=== PATIENT | female | born 1995 | race Caucasian/White ===

== ENCOUNTER → 2018-01-30 | Outpatient (CLI) | payer BC ==
[~2018-01-30] MED LIST: AZIT500T47 PO; CITA-145 PO; EMBREL IM; IMPLANON; PRE20 PO
[2018-01-30 16:15] LABS: PLATELET COUNT, AUTOMATED 317 K/uL (150-450)
== END ==
LOC: LAB 16:01
PROVIDERS: ATTEND Student in an Organized Health Care Education/Training Program
DX: Z34.91 Encounter for supervision of normal pregnancy, unspecified, first trimester (principal); R82.79 Other abnormal findings on microbiological examination of urine
CPT/HCPCS: 36415; 81001; 85025; 86592; 86762; 86787; 86850; 86900; 86901; 87088; 87340

== ENCOUNTER → 2018-05-15 | Outpatient (CLI) | payer BC ==
[~2018-05-15] MED LIST changes: +METR-1 PO; +SERT-1 PO
--- NOTE | 2018-05-15 13:33 | RADIOLOGY IMAGING REPORT ---
FACILITY: [facility] PATIENT NAME: Clair Jiménez : 1995 MR: [id number] V: [id number] EXAM DATE: ORDERING PHYSICIAN: LEANN COVARRUBIAS TECHNOLOGIST: Location: [facility] Patient: Clair Jiménez : 1995 Visit/Account:[id number] Date of Sevice: 05/15/2018 [facility] OB ANATOMICAL SURVEY HISTORY: Anatomic survey COMPARISON: None. TECHNIQUE: Transabdominal imaging was performed for assessment of the fetus and maternal pelvic s tructures. Transvaginal imaging was not performed. FINDINGS: Intrauterine gestations: One. presentation: Variable. heart rate: 134 bpm. Amniotic fluid volume: Normal; FAUSTO 17.41 cm; MVP 5.82 cm. Placenta: Anterior with no evidence of a placenta previa. Uterus: Gravid, otherwise grossly unremarkable where visualized. Maternal adnexa/ovaries: Grossly unremarkable, ovaries not visualized. Cervix: Grossly long and closed. Gestational Parameters: BPD: 4.82 cm, 83rd percentile HC: 18.14 cm, 79th percentile AC: 15.59 cm, 78th percentile FL: 3.35 cm, 71st percentile Average ultrasound age (AUA): 20 weeks/ five days Estimated age based on LMP: 19 weeks/ five days Estimated weight (EFW): 366 grams +/- 54 grams, 91st percentile Anatomic Survey: Intracranial structures, 4-chamber heart, stomach, kidneys, urinary bladder, spine, 3-vessel cord and cord insertion are unremarkable. Two upper and two lower extremities visualized. IMPRESSION: Single viable fetus in variable presentation with an estimated gestational age by measurements of 20 weeks and five days. The estimated weight is 366 g, 91st percentile Report Dictated By: Grace Leal MD at 05/15/2018 1:25 PM Report E-Signed By: Grace Leal MD at 05/15/2018 1:29 PM WSN:DERIAN
== END ==
LOC: RAD 11:01
PROVIDERS: ATTEND Student in an Organized Health Care Education/Training Program
DX: Z34.92 Encounter for supervision of normal pregnancy, unspecified, second trimester (principal); Z3A.20 20 weeks gestation of pregnancy

== ENCOUNTER → 2018-09-05 | Outpatient (CLI) | payer BC ==
[~2018-09-05] MED LIST changes: +DIPH0.5D12 IM
== END ==
LOC: LAB 09:31
PROVIDERS: ATTEND Student in an Organized Health Care Education/Training Program
DX: Z36.85 Encounter for antenatal screening for Streptococcus B (principal)
CPT/HCPCS: 87081

== ENCOUNTER 2018-09-22 15:54 | Observation (INO) | payer BC ==
[~2018-09-22] VITALS: Ht 157.5 cm; Wt 75.7 kg
[2018-09-22 17:00] VITALS: BP 128/78; Ht 157.5 cm; Wt 75.7 kg
== END 2018-09-22 19:18 | disposition home or self-care (01) ==
LOC: OB 15:54 → INTOOBSV 15:54
PROVIDERS: ADMIT Student in an Organized Health Care Education/Training Program; ATTEND Student in an Organized Health Care Education/Training Program
DX: O47.1 False labor at or after 37 completed weeks of gestation (principal); Z3A.38 38 weeks gestation of pregnancy
CPT/HCPCS: G0378; G0379

== ENCOUNTER 2018-09-26 16:55 | Inpatient (IN) | payer BC ==
[~2018-09-26] VITALS: Ht 157.5 cm; Wt 74.8 kg
[~2018-09-26 16:55] MED LIST changes: +EPIDURAL KEYS XX PRN; +FENTANYL/ROPIVACAINE 100 ML BAG EPI PRN; +LR(*) 1000 ML BAG 1,000 ML IV PRN; +LR(*) 1000 ML BAG 1,000 ML ONE; +ONDANSETRON 4 MG/2 ML VIAL IVP PRN; +fentaNYL CITR 100 MCG/2 ML AMP IT PRN
[2018-09-26 17:15] VITALS: BP 146/83; Ht 157.5 cm; Wt 74.8 kg
[2018-09-26] MEDS ORDERED: FAMOTIDINE(*) 20MG/50ML PREMIX 50 ML IVPB PRN (17:33)
[2018-09-26] MEDS ORDERED: OXYTOCIN 30 UNIT/D5LR 500 ML 500 ML IV PRN (17:33)
[2018-09-26] MEDS ORDERED: LIDOCAINE 1% LOCAL 300 MG/30ML INJ PRN (17:35)
[2018-09-26] MEDS ORDERED: FLUSH 10 ML SYR IVP PRN (17:35)
[2018-09-26] MEDS ORDERED: fentaNYL CITR 100 MCG/2 ML AMP IVP PRN (17:35)
[2018-09-26] MEDS ORDERED: LIDOCAINE/SOD BICARB 8.4% SYR SC PRN (17:35)
[2018-09-26] MEDS ORDERED: ONDANSETRON 4 MG/2 ML VIAL IVP PRN (17:35)
[2018-09-26] MEDS ORDERED: ACETAMINOPHEN 325 MG TAB PO PRN (17:35)
[2018-09-26 17:56] LABS: PLATELET COUNT, AUTOMATED 216 K/uL (150-450)
--- NOTE | 2018-09-26 18:14 | History & Physical ---
History of Present Illness Age of Patient: 22 : 1 Para or TPAL: 0 EDC per LMP: Oct 04, 2018 Estimated Gestational Age: 38.6 Chief Complaint Contractions History of Present Illness Pt is a 22 y/o @ 38-6/7 wga by lmp who presents to L&D with a chief complaint of painful contractions. Pt reports contractions starting at 0400 this morning. Was checked in the office early this afternoon and was 3 cm. Reports no loss of amniotic fluid. Good movement. Minimal spotting. History Patient's Blood Type: O Positive Rubella Status: Immune Group B Strep Screen: Negative Obstetrical History: Past Medical History: Non contributory Allergies: Coded Allergies: No Known Drug Allergies (Verified , 07/26/11) Social History: Denies X 3 Family History: FH: asthma BROTHER OR SISTER FH: cancer FH: diabetes mellitus Med Rec Home Meds Active Scripts Sertraline Hcl (ZOLOFT) 50 Mg Tablet, 1 TAB PO QDAY for 30 Days, #30 TAB 9 Refills Prov:LEANN COVARRUBIAS DO 03/21/18 Review of Systems All Systems Reviewed/Normal: Yes, Except as Noted Constitutional: No Fever, No Weight Loss, No Weight Gain, No Chills, No Night Sweats, No Other Eyes: No Vision Change, No Loss of Vision, No Photophobia, No Other ENT: No Hearing Loss, No Sinus Congestion, No Sore Throat, No Ear Ache, No Tinnitus, No Other Cardiovascular: No Chest Pain, No Palpitations, No Orthostatic Hypotension, No Other Respiratory: No Shortness of Breath, No Cough, No Wheezing, No Other Gastrointestinal: No Nausea, No Vomiting, No Diarrhea, No Dysphagia, No Constipation, No Early Satiety, No Hematemesis, No Hematochezia, No Melena, No Abdominal Pain, No Other Genitourinary: No Dysuria, No Hematuria, No Urinary Incontinence, No Other Musculoskeletal: No Pain, No Sprain, No Strain, No Impaired Mobility, No Other Exam General Exam General Apperance: Alert/Awake/No Acute Distress Neuro: No Gross deficits Eyes: Normal Extraocular Movement & Vison ENT: Normal Cardiovascular: Regular Rate and Rhythm Respiratory: No Respiratory Distress Abdomen: Soft, Non-Tender, Non-Distended, Gravid - Non-Tender Integumentary: Skin Intact without Lesions or Rash Psychological: Alert & Oriented X3, Appropriate Mood & Affect Vaginal Discharge/Fluid?: Bloody Show Cervical Dialation: 5 Cervical Effacement (%): 100 Cervical Consistency: Soft Cervical Position: Anterior Station: -2 Presentation: Vertex Uterine Contractions(Q min): 3 Uterine Contraction Strength: Moderate UC Resting Tone: Soft Fetus Feeling Movement?: Yes Estimated Weight(grams): 3200 Heart Tones: 130 Heart Tone Variabilty: Moderate FHT Accelerations: 15X15 FHT Decelerations: None Medical Decision Making Data Points Result Diagram: 09/26/18 020 Pre-Admit Course Medical Record Review: Yes VTE Prophylasis: Adult Deep Vein Thrombosis/Pulmonary: No 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 Amniotomy once IV. Epidural when desires. Expect . LEANN COVARRUBIAS DO Sep 26, 2018 18:14
[2018-09-26] MEDS ORDERED: fentaNYL CITR 100 MCG/2 ML AMP IT PRN (18:25)
[2018-09-26] MEDS ORDERED: EPIDURAL KEYS XX PRN ×2 (18:25→19:48)
[2018-09-26] MEDS ORDERED: BUPIVACAINE 0.5% INJ 30ML VIAL EPI PRN (18:25)
[2018-09-26] MEDS ORDERED: LIDO/EPI 2% MPF 1:200,000 20ML EPI PRN (18:25)
[2018-09-26] MEDS ORDERED: LIDOCAINE/PF 2% 200MG/10ML AMP 200 MG/10 ML AMPUL EPI PRN (18:25)
[2018-09-26] MEDS ORDERED: BUPIVACAINE 0.25% MPF INJ EPI PRN (18:25)
[2018-09-26] MEDS ORDERED: FENTANYL/ROPIVACAINE 100 ML BAG EPI PRN (18:25)
--- NOTE | 2018-09-26 18:34 | Labor Progress Note ---
Labor Subjective Progress Notes Subjective Breathing through contractions. 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 If no change in 2-4 hours start oxytocin. LEANN COVARRUBIAS DO Sep 26, 2018 18:34
[2018-09-26] MEDS: LR(*) 1000 ML BAG 1,000 ML IV SCH ×2 (18:43→20:00)
[2018-09-26] MEDS ORDERED: ePHEDrine 25 MG/5 ML DISP.SYR IVP ONE (18:54)
--- NOTE | 2018-09-26 20:15 | Anesthesia OB Pre-Anes Eval ---
History of Present Illness Anesthesia Start Date: Sep 26, 2018 Anesthesia Start Time: 19:01 OB Anesthesia Diagnosis: spontaneous labor EDC: Sep 06, 2018 : 1 Para: 0 Pain Ratin Result Diagram: 09/26/18 1742 Height (Inches): 62.00 Weight (Pounds): 165 Past Medical History Medical History: no pertinent history Surgical History: no surgical history Previous Anesthesia: other (none) Hx Anesthesia Reactions: No Hx Family Anesthesia Reaction: No Home Meds Active Scripts Sertraline Hcl (ZOLOFT) 50 Mg Tablet, 1 TAB PO QDAY for 30 Days, #30 TAB 9 Refills Prov:LEANN COVARRUBIAS DO 03/21/18 Allergies: Coded Allergies: No Known Drug Allergies (Verified , 07/26/11) Anesthesia OB ROS Neurological: seizures (at 11 years of age); No migraines/headaches, No ne uropathy, No other ENT: Denies Tooth caps, Denies Loose teeth, Denies Chipped teeth, Denies Dentures, Denies Bridges, Denies Retainers, Denies Veneers, Denies Implants, Denies Tongue ring, Denies Other Pulmonary: No asthma, No smoker (pks/day/yrs), No other Airway Class: l Cardiovascular ROS: No edema, No arrhythmia, No other GI ROS: clear liquids, ice chips ROS: No Herpes, No STD(s), No Liver Disease, No Renal Disease, No Other Endocrine ROS: No diabetes, No gestational diabetes, No thyroid disorder, No other Musculoskeletal ROS: No low back pain, No low back injury, No scoliosis, No other ASA Classification: 2 Assessment and Plan Anesthesia Plan: CSE Assessment: Catheter disconnected from tubing at 0245 so epidural was removed and discontinued. Assessment no contraindications for cse Anesthesia Stop Day: Sep 27, 2018 Anesthesia Stop Time: 03:30 Epidural Catheter Removal: Removed Catheter Intact, Yes, Removed by: (Markus Kemp) Removal Date: Sep 27, 2018 Removal Time: 02:45 MARKUS KEMP CRNA Sep 26, 2018 20:15
--- NOTE | 2018-09-26 20:18 | Procedure Note ---
Anesthetic Placement Note Anesthesia Plan: CSE Permit for Anesthesia Signed: Yes Anesthesia Technique: Patient Sitting Anesthesia Prep: Chlorhexidine Interspace: L 3-4 Local Anesthetic: 1% Lidocaine, 25 Gauge Needle Amount Local - cc's: 2 Anesthesia Needle: 17g Touhy/Schliff Anesthesia Attempts: 1 Loss of Resistance: Normal Saline Depth of DINO (cm): 4.5 Epidural Needle Placement: No CSF, No Blood, No Parasthesia Intrathecal Needle: 27 Gauge Pencan Cerebral Spinal Fluid: Yes, Clear Catheter Insertion (cm): 11 Catheter Type: Hitchcock - Spring Wound Epidural Dressing: Tegaderm, Tape Anesthesia Tray: Lot Number ([id number]), Expiration Date (03/31/2020) Anesthesia Medications: Intrathecal Dose: mcg Fentanyl (50) Epidural Test Dose: 1.5 Lido/Epi (1:200,000), Dose - mL (4), Time (1941), Negative Epidural Loading Dose: 0.2% Ropivicaine, With Fentanyl 2mcg/ml, Dose - ml (3), Time (1955) Epidural Infusion: 0.2% Ropivicaine, With Fentanyl 2mcg/ml, Start Time: (1955) Epidural Pump Setting: Bolus Dose - mL (4), Lockout - Minutes (20), Maintenance Rate - mL/hr (8), Maximum per Hour - mL (8) Complications: None Comment: Pump was increased to 10ml/hr around MARKUS STORM CRNA Sep 26, 2018 20:18
[2018-09-27] MEDS ORDERED: CARBOPROST TROMETHAM 250MCG/ML IM ONLY ONE (02:23)
[2018-09-27] MEDS ORDERED: METHYLERGONOVINE MAL 0.2MG/ML ONE (02:23)
[2018-09-27] MEDS ORDERED: LANOLIN OINT 7 GM TUBE TP PRN (04:10)
[2018-09-27] MEDS ORDERED: ACETAMINOPHEN 325 MG TAB PO PRN (04:10)
[2018-09-27] MEDS ORDERED: MAGNESIUM HYDROXIDE* 30ML UDCP PO PRN (04:10)
[2018-09-27] MEDS ORDERED: HYDROCORTISONE 2.5% CR 30GM TB PR PRN (04:10)
[2018-09-27] MEDS ORDERED: INFLUENZA VIRUS VAC 0.5ML SYR IM ONLY ONE (04:10)
[2018-09-27] MEDS ORDERED: MEASLES,MUMP,RUBELLA VAC 0.5ML SC ONE (04:10)
[2018-09-27] MEDS ORDERED: GLYCERIN/WITCH HAZEL LEAF 1 PK TOP PRN (04:10)
[2018-09-27] MEDS ORDERED: DIPHTH/TETANUS/ACEL. PERTUSSIS IM ONE (04:10)
[2018-09-27] MEDS ORDERED: BENZOCAINE 20% 60 ML BTL TP PRN (04:10)
--- NOTE | 2018-09-27 04:17 | OB Delivery Note ---
Delivery Note Vaginal Delivery Type: Vacuum Delivery Date: Sep 27, 2018 Delivery Time: 03:23 Estimated Gestational Age(wks): 39.0 Indication (if vag op): Poor maternal effort, maternal exhaustion. Length of Labor Stage I (hrs): 15 Length of Labor Stage II (hrs): 3 Labor Stage III (minutes): 7 Delivery Anesthesia: Epidural Sex: Male Infant Weight (gms): 3515 (7#13) [place] Apgars: 1 Minute (8), 5 Minute (9) Repair Needed: 2nd Degree Estimated Blood Loss: 500 Consumer Safety Officer in Attendence: LEANN Todd DO Sep 27, 2018 04:17
--- NOTE | 2018-09-27 04:56 | DELIVERY NOTE ---
DELIVERY DATE: September 27, 2018 SURGEON: Néstor Orozco DO ANESTHESIA: Epidural. PREOPERATIVE DIAGNOSES 1. A 22-year-old 1, para 0, at 39-0/7 weeks' gestation. 2. Labor. POSTOPERATIVE DIAGNOSES 1. A 22-year-old 1, para 0, at 39-0/7 weeks' gestation. 2. Labor. 3. Delivered. PROCEDURE Vacuum-assisted vaginal delivery with repair of second-degree midline laceration and left labial laceration. FINDINGS Live-born male at 0323 of 09/27/2018 with Apgars of 8 and 9, weighing 3515 g, 7 pounds 13 ounces, three-vessel cord, intact placenta, over a second- degree midline laceration and a left labial laceration. ESTIMATED BLOOD LOSS 500 mL. PATHOLOGY None. COMPLICATIONS None known. CONDITION Stable x2. Mother and remained in the LDRP. COUNTS Correct for all needles, laps, sponges and instruments. LABOR SUMMARY Patient is a 22-year-old 1, para 0, at 39-0/7 weeks' gestation, who presented to Labor and Delivery with a complaint of painful contractions. She was 5 cm. Shortly after admission, she underwent amniotomy with clear amniotic fluid. She made quick, spontaneous progress to complete. After a short time of pushing, the labor and delivery nurse decided it was time to stop pushing secondary to poor maternal effort as well as a heavy epidural. The patient was given approximately an hour before returning to pushing. Patient began to push again and pushed for approximately two hours. It was noted that there was minimal vertex noted at labia when pushing. After watching Mom push for approximately 30 minutes, I counseled her for a vacuum-assisted vaginal delivery secondary to her tiring out and poor effort. Both she and her agreed to proceed with a vacuum-assisted vaginal delivery. At this point, the bladder was drained with a red rubber catheter. The station was noted to be +2/+3 with pushing. The vacuum was placed approximately 2 cm anterior to the posterior fontanelle. It was cleared of all maternal tissue. With the contraction, the vacuum was applied and suction was applied to the green zone of the Kiwi hard cup vacuum. Gentle outward traction was applied with that. There was one popoff noted in the progression of the entire vacuum- assisted delivery. With each subsequent pull, there was significant change in station. It did require a total of four contractions for delivery of the 's chin. The vacuum suction was removed in between each contraction, but the vacuum remained in place on the head with suction at 0. With the 's chin controlled, the suction was removed. The infant restituted from an occiput anterior position to a left occiput anterior position. With gentle downward motion, the anterior shoulders delivered without any difficulty. With gentle upward motion, the posterior shoulders delivered without any difficulty, with the remainder of the 's body delivering spontaneously. There was terminal meconium noted upon quick inspection, with nose and mouth being bulb-suctioned. A vigorous male infant was then placed on maternal abdomen, was stimulated by nursing staff and continued to remain vigorous. After approximately three minutes, the cord was clamped x2 and cut by the infant's father. Because of concerns for infant lungs being crackly, the infant was taken to the warmer to have a little bit of monitoring while repair was undertaken. Next, cord blood gas was obtained. The placenta delivered spontaneously with gentle cord traction. Oxytocin was infused to help with uterine tone. Uterus was massaged and deemed firm. Next, upon inspection of the perineum and vagina, cervix and labia, it was noted that there was a second-degree midline laceration as well as a left labial laceration. These were both repaired in a running manner with 3-0 Vicryl for the second-degree and a 4-0 Vicryl for the left labial. With lacerations inspected, it was noted that both were hemostatic. The bladder was once again drained with a red rubber catheter. The patient was cleaned. The labor bed was reassembled, and the mother and were allowed to continue to dasilva. [facility]atshe[facility]
[2018-09-27] MEDS: IBUPROFEN 800 MG TAB PO SCH ×2 (05:12→12:50)
[2018-09-27] MEDS ORDERED: LIDOCAINE 1% LOCAL 300 MG/30ML 0 ML ONE (05:35)
[2018-09-27] MEDS: APAP/HYDROCODONE 325/5 TAB PO PRN ×2 (06:18→21:21)
[2018-09-27] MEDS: LR(*) 1000 ML BAG 1,000 ML IV SCH ×4 (07:05→23:33)
[2018-09-27 07:21] VITALS: BP 114/75
[2018-09-27] MEDS ORDERED: MISOPROSTOL 200 MCG TAB ONE (08:27)
[2018-09-27] MEDS: DOCUSATE CALCIUM 240 MG CAP PO SCH ×2 (09:04→21:07)
--- NOTE | 2018-09-27 09:14 | OB/GYN Progress Note ---
OB Subjective Progress Notes Subjective Doing better since delivery. Patient reports bleeding has slowed down drastically. Denies any nausea or vomiting. Denies any dizziness or chest pain. Would like to have the catheter out. GI: NEG Nausea, NEG Vomiting, NEG Flatus, NEG Bowel Movement : Vaginal Bleeding, Moderate Pain: Mild, Tolerating PO Pain Meds Neurological: No Headache, No Other Eyes: No Visual Disturbances OB Objective Physical Exam Vital Signs Date Time Temp Pulse Resp B/P (MAP) Pulse Ox O2 Delivery O2 Flow Rate FiO2 09/27/18 07:21 99.0 109 18 114/75 (88) 94 09/26/18 17:15 Room Air Intake and Output 09/27/18 07:00 Output Total 750 ml Balance -750 ml Output Urine Total 750 ml General Appearance: Alert/Awake/No Acute Distress Neurological: No Gross deficits Eyes: Normal Extraocular Movement & Vison Respiratory: No Respiratory Distress Integumentary: Skin Intact without Lesions or Rash Psychological: Alert & Oriented X3, Appropriate Mood & Affect Result Diagram: 09/26/18 5936 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 Patient did have 1000 mL of bleeding that was managed with IM Methergine, Cytotec 400 g by mouth 1 dose, additional bag of oxytocin. Patient did receive 1 L bolus of lactated Ringer's has great urine output. Will discontinue patient's Villanueva c atheter after she eats breakfast and ambulates expect routine normal care thereafter. Will consider H&H tonight. LEANN COVARRUBIAS DO Sep 27, 2018 09:14
[2018-09-27 12:05] VITALS: BP 108/61
[2018-09-27 15:18] VITALS: BP 91/52
[2018-09-27 20:41] VITALS: BP 115/65
[2018-09-27] MEDS ORDERED: IBUPROFEN 800 MG TAB PO SCH (21:00)
[2018-09-27 21:13] VITALS: BP 116/58
[2018-09-28 00:37] VITALS: BP 90/52
[2018-09-28 03:06] VITALS: BP 105/59
[2018-09-28 08:15] VITALS: BP 102/64
[2018-09-28] MEDS ORDERED: FERROUS SULFATE 325 MG TAB PO SCH (08:25)
[2018-09-28] MEDS: DOCUSATE CALCIUM 240 MG CAP PO SCH (08:53)
[2018-09-28] MEDS: APAP/HYDROCODONE 325/5 TAB PO PRN (08:53)
[2018-09-28 12:17] VITALS: BP 118/68
--- NOTE | 2018-09-28 12:34 | OB/GYN Progress Note ---
OB Subjective Progress Notes Subjective Doing good day #1. Reports pain minimal tolerating symptoms with ibuprofen Olin. Bleeding appropriate. . No symptoms of dizziness or shortness of breath with ambulation. GI: NEG Nausea, NEG Vomiting, NEG Flatus, NEG Bowel Movement : Voiding Well, Vaginal Bleeding, Scant Pain: Mild, Tolerating PO Pain Meds Neurological: No Headache, No Other Eyes: No Visual Disturbances OB Objective Physical Exam Vital Signs Date Time Temp Pulse Resp B/P (MAP) Pulse Ox O2 Delivery O2 Flow Rate FiO2 09/28/18 12:17 97.2 108 18 118/68 (85) 96 Room Air Intake and Output 09/28/18 07:00 Intake Total 1740 ml Output Total 1950 ml Balance -210 ml Intake Oral 240 ml IV Total 1500 ml Output Urine Total 1950 ml General Appearance: Alert/Awake/No Acute Distress Neurological: No Gross deficits Eyes: Normal Extraocular Movement & Vison Respiratory: No Respiratory Distress Abdomen: Soft, Non-Tender, Non-Distended, Fundus Firm Integumentary: Skin Intact without Lesions or Rash Psychological: Alert & Oriented X3, Appropriate Mood & Affect Result Diagram: 09/28/18 0632 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 LEANN COVARRUBIAS DO Sep 28, 2018 12:33
[2018-09-28] MEDS ORDERED: LOR5/325 PO (12:35)
[2018-09-28] MEDS ORDERED: IBUP800T37 PO (12:35)
--- NOTE | 2018-09-28 12:38 | OB/GYN Discharge Summary ---
Discharge Summary Reason for Hosp/Final Diag: (1) Active labor at term Status: Resolved Hospital Course & Plan: 22-year-old 1 para 0 presented to labor and delivery at 38-6/7 weeks gestational complaint of labor was deemed to be in labor she progressed to complete did require vacuum assisted vaginal delivery se e delivery note for details procedure. Patient remained in the hospital for one day . Patient did have some uterine atony within the 1st 3 hours of delivery that did require Methergine Cytotec and extraocular. Hemoglobin dropped from 13-9. Patient tolerated EBL without any symptoms. Patient desired to be discharged home on day #1 she was given instructions accordingly and follow-up in 2 weeks. [place] Vital Signs Vital Signs Date Time Temp Pulse Resp B/P (MAP) Pulse Ox O2 Delivery O2 Flow Rate FiO2 09/28/18 12:17 97.2 108 18 118/68 (85) 96 Room Air Weight (Pounds): 165 Result Diagram: 09/28/18 0632 Condition: Improved Discharge: Home Home Meds Active Scripts Hydrocodone Bit/Acetaminophen (HYDROCODON-ACETAMINOPHEN 5-325) 1 Each Tablet, 1- 2 EACH PO Q4H PRN for PAIN, #20 TAB 0 Refills Max of 10/day Prov:LEANN COVARRUBIAS DO 09/28/18 Ibuprofen (IBUPROFEN) 800 Mg Tablet, 800 MG PO Q8H@0600,1400,2200, #20 TAB 0 Refills Prov:LEANN COVARRUBIAS DO 09/28/18 Sertraline Hcl (ZOLOFT) 50 Mg Tablet, 1 TAB PO QDAY for 30 Days, #30 TAB 9 Refills Prov:LEANN COVARRUBIAS DO 03/21/18 Follow up with: [facility] [phone], Dr. Covarrubias [phone] Follow up in: 6 wks PP or PO, 2 wks PO Discharge Diet: As Tolerates, Resume Prior Admit Diet, Increase Fluid Intake Discharge Activity: As Tolerates, Pelvic Rest LEANN COVARRUBIAS DO Sep 28, 2018 12:38
[2018-09-28] MEDS ORDERED: IBUPROFEN 800 MG TAB PO SCH (14:00)
== END 2018-09-28 13:55 | disposition home or self-care (01) | DRG 806 ==
LOC: OB 16:55
PROVIDERS: ADMIT Obstetrics & Gynecology; ATTEND Obstetrics & Gynecology
PROC: 10D07Z6 Extraction of Products of Conception, Vacuum, Via Natural or Artificial Opening (ICD-10-PCS; principal; 2018-09-27)
PROC: 0KQM0ZZ Repair Perineum Muscle, Open Approach (ICD-10-PCS; 2018-09-27)
PROC: 10907ZC Drainage of Amniotic Fluid, Therapeutic from Products of Conception, Via Natural or Artificial Opening (ICD-10-PCS; 2018-09-27)
DX: O77.0 Labor and delivery complicated by meconium in amniotic fluid (principal); O72.2 Delayed and secondary postpartum hemorrhage; Z37.0 Single live birth; O70.1 Second degree perineal laceration during delivery; O75.81 Maternal exhaustion complicating labor and delivery; Z3A.39 39 weeks gestation of pregnancy
CPT/HCPCS: 36415; 85025; 85027; 86703; 86850; 86900; 86901; J2210; J2405; J2590; J3010; J7120

== ENCOUNTER 2018-09-30 14:38 | Emergency (ER) | payer BC ==
[2018-09-26 17:15] VITALS: Wt 74.8 kg
[~2018-09-30 14:38] MED LIST changes: -EPIDURAL KEYS XX PRN; -FENTANYL/ROPIVACAINE 100 ML BAG EPI PRN; +IBUP800T37 PO; +LOR5/325 PO; -LR(*) 1000 ML BAG 1,000 ML IV PRN; -LR(*) 1000 ML BAG 1,000 ML ONE; -ONDANSETRON 4 MG/2 ML VIAL IVP PRN; -fentaNYL CITR 100 MCG/2 ML AMP IT PRN
--- NOTE | 2018-09-30 14:53 | ER Report ---
History and Physical Time Seen By MD: 14:53 HPI/ROS CHIEF COMPLAINT: Pain to right groin back to the buttock HISTORY OF PRESENT ILLNESS: 22-year-old female patient presents to emergency room with complaint of pain to the right groin that radiates to the buttock. Patient states she has had significantly worsening pain with ambulation. Patient states that she has been taking her pain medication with no improvement. She states she's felt warm and hit the emergency room she is tachycardic with a ventricular rate of 117 bpm. Patient denies any nausea, vomiting or diarrhea. Patient states she is 5 days with her first child. She did have some tearing there was repaired with sutures. She denies having any nausea, vomiting or diarrhea. REVIEW OF SYSTEMS: Respiratory: No cough, no dyspnea. Cardiovascular: No chest pain, no palpitations. Gastrointestinal: No vomiting, no abdominal pain. Musculoskeletal: No back pain. Allergies: Coded Allergies: No Known Drug Allergies (Verified , 07/26/11) Home Meds Active Scripts Oxycodone Hcl/Acetaminophen (PERCOCET 5-325 MG TABLET) 1 Each Tablet, 1 EACH PO Q4-6H PRN for PAIN, #12 TAB Prov:[employer] 09/30/18 Hydrocodone Bit/Acetaminophen (HYDROCODON-ACETAMINOPHEN 5-325) 1 Each Tablet, 1- 2 EACH PO Q4H PRN for PAIN, #20 TAB 0 Refills Max of 10/day Prov:LEANN OROZCO DO 09/28/18 Ibuprofen (IBUPROFEN) 800 Mg Tablet, 800 MG PO Q8H@0600,1400,2200, #20 TAB 0 Refills Prov:LEANN OROZCO DO 09/28/18 Discontinued Scripts Sertraline Hcl (ZOLOFT) 50 Mg Tablet, 1 TAB PO QDAY for 30 Days, #30 TAB 9 Refills Prov:LEANN OROZCO DO 03/21/18 Past Medical/Surgical History Patient has a past medical history of psoriasis, anxiety. Patient denies any surgical history. Reviewed Nurses Notes: Yes Hx Smoking: No Smoking Status: Never Smoker Exposure to Second Hand Smoke?: No Hx Substance Use Disorder: No Hx Alcohol Use: No Constitutional Vital Sign - Last 24 Hours 09/30/18 09/30/18 09/30/18 09/30/18 14:38 14:51 14:53 15:00 Pulse ??? 119 Resp 46 B/P (MAP) 131/84 (100) 122/93 (103) Pulse Ox 92 09/30/18 09/30/18 09/30/18 09/30/18 15:00 15:08 15:23 15:30 Temp 99.1 Pulse 112 ??? 107 Resp 18 B/P (MAP) 122/93 115/81 (92) Pulse Ox 92 85 O2 Delivery Room Air 09/30/18 09/30/18 09/30/18 09/30/18 15:38 15:53 16:00 16:08 Pulse 108 115 106 B/P (MAP) 110/82 (91) Pulse Ox 94 94 95 09/30/18 16:23 Pulse ??? Pulse Ox 84 Physical Exam General Appearance: The patient is alert, has no immediate need for airway protection and no current signs of toxicity. Respiratory: Chest is non tender, lungs are clear to auscultation. Cardiac: regular rate and rhythm Gastrointestinal: Abdomen is soft and non tender, no masses, bowel sounds normal. Rectum itself looks normal, no tenderness to palpation. Musculoskeletal: Neck: Neck is supple and non tender. Extremities have full range of motion and are non tender. Skin: No rashes or lesions. Vagina: Patient does have some erythema at the distal aspect of the vagina, does have some tenderness there. Sutures appear to be intact. DIFFERENTIAL DIAGNOSIS: After history and physical exam differential diagnosis was considered for infection, abscess, cellulitis. Medical Decision Making Data Points Result Diagram: 09/30/18 1538 09/30/18 1538 Laboratory Hematology Test 09/30/18 15:38 Red Blood Count 3.26 M/uL (4.17-5.56) Mean Corpuscular Volume 92.0 fL (80.0-96.0) Mean Corpuscular Hemoglobin 30.7 pg (26.0-33.0) Mean Corpuscular Hemoglobin Concent 33.4 g/dL (32.0-36.0) Red Cell Distribution Width 13.9 % (11.5-14.5) Mean Platelet Volume 7.7 fL (7.2-11.1) Neutrophils (%) (Auto) 76.8 % (39.4-72.5) Lymphocytes (%) (Auto) 13.9 % (17.6-49.6) Monocytes (%) (Auto) 4.6 % (4.1-12.4) Eosinophils (%) (Auto) 3.5 % (0.4-6.7) Basophils (%) (Auto) 1.2 % (0.3-1.4) Nucleated RBC Relative Count (auto) 0.0 /100WBC Neutrophils # (Auto) 12.1 K/uL (2.0-7.4) Lymphocytes # (Auto) 2.2 K/uL (1.3-3.6) Monocytes # (Auto) 0.7 K/uL (0.3-1.0) Eosinophils # (Auto) 0.5 K/uL (0.0-0.5) Basophils # (Auto) 0.2 K/uL (0.0-0.1) Nucleated RBC Absolute Count (auto) 0.00 K/uL Sodium Level 135 mmol/L (137-145) Potassium Level 3.8 mmol/L (3.5-5.0) Chloride Level 106 mmol/L (98-107) Carbon Dioxide Level 23 mmol/L (22-31) Blood Urea Nitrogen 5 mg/dl (7-18) Creatinine 0.50 mg/dl (0.52-1.04) Glomerular Filtration Rate Calc > 60.0 Random Glucose 89 mg/dl (75-110) Calcium Level 8.6 mg/dl (8.4-10.2) Total Bilirubin 0.3 mg/dl (0.2-1.3) Aspartate Amino Transf (AST/SGOT) 35 U/L (0-35) Alanine Aminotransferase (ALT/SGPT) 38 U/L (0-56) Alkaline Phosphatase 136 U/L (0-126) Total Protein 6.7 g/dl (6.3-8.2) Albumin 3.4 g/dl (3.5-5.0) Chemistry Test 09/30/18 15:38 White Blood Count 15.8 k/uL (4.5-11.0) Red Blood Count 3.26 M/uL (4.17-5.56) Hemoglobin 10.0 g/dL (12.0-16.0) Hematocrit 30.0 % (34.0-47.0) Mean Corpuscular Volume 92.0 fL (80.0-96.0) Mean Corpuscular Hemoglobin 30.7 pg (26.0-33.0) Mean Corpuscular Hemoglobin Concent 33.4 g/dL (32.0-36.0) Red Cell Distribution Width 13.9 % (11.5-14.5) Platelet Count 340 K/uL (150-450) Mean Platelet Volume 7.7 fL (7.2-11.1) Neutrophils (%) (Auto) 76.8 % (39.4-72.5) Lymphocytes (%) (Auto) 13.9 % (17.6-49.6) Monocytes (%) (Auto) 4.6 % (4.1-12.4) Eosinophils (%) (Auto) 3.5 % (0.4-6.7) Basophils (%) (Auto) 1.2 % (0.3-1.4) Nucleated RBC Relative Count (auto) 0.0 /100WBC Neutrophils # (Auto) 12.1 K/uL (2.0-7.4) Lymphocytes # (Auto) 2.2 K/uL (1.3-3.6) Monocytes # (Auto) 0.7 K/uL (0.3-1.0) Eosinophils # (Auto) 0.5 K/uL (0.0-0.5) Basophils # (Auto) 0.2 K/uL (0.0-0.1) Nucleated RBC Absolute Count (auto) 0.00 K/uL Glomerular Filtration Rate Calc > 60.0 Calcium Level 8.6 mg/dl (8.4-10.2) Total Bilirubin 0.3 mg/dl (0.2-1.3) Aspartate Amino Transf (AST/SGOT) 35 U/L (0-35) Alanine Aminotransferase (ALT/SGPT) 38 U/L (0-56) Alkaline Phosphatase 136 U/L (0-126) Total Protein 6.7 g/dl (6.3-8.2) Albumin 3.4 g/dl (3.5-5.0) ED Course/Re-evaluation ED Course Patient was admitted to an exam room, history and physical were obtained. Differential diagnoses were considered. On examination lungs are clear, heart was regular, abdomen soft nontender. Patient had no obvious tenderness around the rectum or along the groin. Patient did have some discomfort to the vagina, especially around the introitus around 6:00. She did have some sutures in place there. I believe that the pain she is having is likely secondary to the trauma to the vagina secondary to having her baby. I did get a CBC, CMP in the patient. Patient did have an elevated white count of 15,000 with left shift. CMP was unremarkable. I discussed the case with Dr. Mckoy, lay brother, who felt that the elevated white count was normal secondary to delivery. Patient did indeed have a white count of 20,000 prior to discharge. Which shows she has had improvement. Her recommendation was not to place the patient on any antibiotics unless there is purulent drainage. I did discuss this with the patient. We will hold off getting her any antibiotics at this time. We will change her pain medication from hydrocodone to Percocet. She is to limit her activity by pain. Patient did state that she may have overdone it yesterday which could be the underlying cause of her pain. I believe it was likely the case encouraged her to make sure that she is planning of rest. She is to follow-up with Dr. Barbosa next week. She is to call on Tuesday to make an appointment. Patient verbalized understanding and agreement with plan. Decision to Disposition Date: Sep 30, 2018 Decision to Disposition Time: 16:14 Depart Departure Latest Vital Signs Vital Signs Date Time Temp Pulse Resp B/P (MAP) Pulse Ox O2 Delivery O2 Flow Rate FiO2 09/30/18 16:23 ??? 84 09/30/18 16:00 110/82 (91) 09/30/18 15:00 99.1 18 Room Air Impression: Primary Impression: Pelvic pain in female Condition: Improved Disposition: HOME OR SELF-CARE Referrals: LEANN OROZCO DO (PCP) New Scripts Oxycodone Hcl/Acetaminophen (PERCOCET 5-325 MG TABLET) 1 Each Tablet 1 EACH PO Q4-6H PRN for PAIN, #12 TAB Prov: TAMIKA MÉNDEZ 09/30/18 Patient Instructions: Pelvic Pain in Women (ED) Additional Instructions: Limit activity by pain. Ice the opening of the Vagina. Take the medication as prescribed. Follow up with Dr. Orozco early next week. Return to the ER if condition worsens. Take the Ibuprofen as directed. TAMIKA MÉNDEZ Sep 30, 2018 14:53
[2018-09-30] MEDS ORDERED: BENZOCAINE 20% 60 ML BTL TOP ONE (15:25)
[2018-09-30 15:45] LABS: PLATELET COUNT, AUTOMATED 340 K/uL (150-450)
[2018-09-30 16:00] VITALS: BP 110/82
[2018-09-30] MEDS ORDERED: NS(*) 0.9% 500 ML BAG 500 ML IV ONE (16:05)
[2018-09-30] MEDS ORDERED: OXYC-865 PO (16:13)
== END 2018-09-30 16:32 | disposition home or self-care (01) ==
LOC: ER 14:49
DX: R10.2 Pelvic and perineal pain (principal)
CPT/HCPCS: 82040; 82247; 82310; 82374; 82435; 82565; 82947; 84075; 84132; 84155; 84295; 84450; 84460; 84520; 85025; 99282